=== PATIENT | female | born 1955 | race Caucasian/White ===

== ENCOUNTER → 2018-09-10 | Outpatient (CLI) | payer OTHER | LOC: HYPER 07:11 | DX: T81.49XA Infection following a procedure, other surgical site, initial encounter (principal); G89.29 Other chronic pain; I10 Essential (primary) hypertension; M19.90 Unspecified osteoarthritis, unspecified site; Z87.891 Personal history of nicotine dependence; Y92.89 Other specified places as the place of occurrence of the external cause; Y83.8 Other surgical procedures as the cause of abnormal reaction of the patient, or of later complication, without mention of misadventure at the time of the procedure ==

== ENCOUNTER → 2018-09-28 | Outpatient (CLI) | payer OTHER | LOC: HYPER 07:43 | DX: T81.49XD Infection following a procedure, other surgical site, subsequent encounter (principal); I10 Essential (primary) hypertension; G89.29 Other chronic pain; M19.90 Unspecified osteoarthritis, unspecified site; Z87.891 Personal history of nicotine dependence; Y83.8 Other surgical procedures as the cause of abnormal reaction of the patient, or of later complication, without mention of misadventure at the time of the procedure ==

== ENCOUNTER → 2018-10-12 | Outpatient (CLI) | payer OTHER | LOC: EDSEX 07:37 → HYPER 07:37 | DX: T81.49XD Infection following a procedure, other surgical site, subsequent encounter (principal); I10 Essential (primary) hypertension; L03.312 Cellulitis of back [any part except buttock and flank]; M19.90 Unspecified osteoarthritis, unspecified site; G89.29 Other chronic pain; Z87.891 Personal history of nicotine dependence; Y83.8 Other surgical procedures as the cause of abnormal reaction of the patient, or of later complication, without mention of misadventure at the time of the procedure ==

== ENCOUNTER → 2018-11-15 | Outpatient (CLI) | payer OTHER | LOC: HYPER 07:09 | DX: T81.49XD Infection following a procedure, other surgical site, subsequent encounter (principal); I10 Essential (primary) hypertension; G89.29 Other chronic pain; L03.312 Cellulitis of back [any part except buttock and flank]; M19.90 Unspecified osteoarthritis, unspecified site; Z87.891 Personal history of nicotine dependence; Y83.8 Other surgical procedures as the cause of abnormal reaction of the patient, or of later complication, without mention of misadventure at the time of the procedure ==

== ENCOUNTER → 2018-12-13 | Outpatient (CLI) | payer OTHER | LOC: HYPER 12-12 14:41 | DX: T81.49XD Infection following a procedure, other surgical site, subsequent encounter (principal); I10 Essential (primary) hypertension; G89.29 Other chronic pain; M19.90 Unspecified osteoarthritis, unspecified site; Z87.891 Personal history of nicotine dependence; Y83.8 Other surgical procedures as the cause of abnormal reaction of the patient, or of later complication, without mention of misadventure at the time of the procedure ==

== ENCOUNTER → 2018-12-26 | Outpatient (CLI) | payer OTHER | LOC: HYPER 07:20 | DX: T81.49XD Infection following a procedure, other surgical site, subsequent encounter (principal); L98.422 Non-pressure chronic ulcer of back with fat layer exposed; G89.29 Other chronic pain; I10 Essential (primary) hypertension; M19.90 Unspecified osteoarthritis, unspecified site; Z87.891 Personal history of nicotine dependence; Y83.8 Other surgical procedures as the cause of abnormal reaction of the patient, or of later complication, without mention of misadventure at the time of the procedure ==

== ENCOUNTER → 2019-01-23 | Outpatient (CLI) | payer OTHER | LOC: HYPER 06:53 | DX: T81.49XD Infection following a procedure, other surgical site, subsequent encounter (principal); I10 Essential (primary) hypertension; G89.29 Other chronic pain; M19.90 Unspecified osteoarthritis, unspecified site; Z87.891 Personal history of nicotine dependence; Y83.8 Other surgical procedures as the cause of abnormal reaction of the patient, or of later complication, without mention of misadventure at the time of the procedure ==